=== PATIENT | male | born 1945 | race Caucasian/White ===

== ENCOUNTER → 2017-04-26 | Outpatient (REF) ==
[~2017-04-26] MED LIST: ASPIRIN 32325 MG/TAB PO; B COMPLEX1 TA2 PO; FISH OIL1000 MG PO; PRIL40 PO; TOPROL XL 25MG25 MG PO; UNICOMPLEX NEW1 CAP PO
== END ==
LOC: ZLAB.WCH 19:00
DX: Z01.89 Encounter for other specified special examinations (principal)

== ENCOUNTER → 2017-12-07 | Outpatient (REF) | LOC: ZLAB.WCH 18:08 | DX: Z01.89 Encounter for other specified special examinations (principal) ==

== ENCOUNTER → 2018-12-09 | Outpatient (REF) | LOC: ZLAB.WCH 15:48 | DX: Z01.89 Encounter for other specified special examinations (principal) ==

== ENCOUNTER → 2018-12-14 | Outpatient (REF) | LOC: ZLAB.WCH 16:03 | DX: Z01.89 Encounter for other specified special examinations (principal) ==